=== PATIENT | female | born 1955 | race Hispanic/Latino ===

== ENCOUNTER 2022-01-06 20:08 | Emergency (ER) | payer OTHER ==
[~2022-01-06] VITALS: Ht 160 cm; Wt 75.8 kg
[2022-01-06 20:08] VITALS: BP 131/70; TEMP 97.8
[2022-01-06 21:03] LABS: PLATELET COUNT 292 K/uL (152-353)
[2022-01-06 21:14] LABS: POTASSIUM 4.2 mmol/L (3.6-5.2)
[2022-01-06] MEDS ORDERED: IBU600 MG PO (23:17)
[2022-01-06] MEDS ORDERED: HALO5INJ3 IM (23:17)
[2022-01-06] MEDS ORDERED: ARTHRICREAM 10% TOP (23:18)
[2022-01-06] MEDS ORDERED: QUETIAPINE100 MG PO (23:19)
[2022-01-06] MEDS ORDERED: GABA300C2 PO (23:21)
[2022-01-06] MEDS ORDERED: CVS SENNA8.6 MG PO (23:22)
[2022-01-06] MEDS ORDERED: MEMANTINE HYDRO10 MG PO (23:22)
[2022-01-06] MEDS ORDERED: BUSPIRONE10 MG PO (23:22)
[2022-01-06] MEDS ORDERED: METO-837 PO (23:23)
[2022-01-06] MEDS ORDERED: QUETIAPINE50 MG PO (23:24)
[2022-01-06] MEDS ORDERED: LEVO0.0218 PO (23:24)
[2022-01-06] MEDS ORDERED: [UNRECOGNIZED DRUG - CODE] PO (23:25)
[2022-01-06] MEDS ORDERED: DIVA250T PO (23:26)
[2022-01-06] MEDS ORDERED: ACID CONTROL20 MG PO (23:27)
[2022-01-06] MEDS ORDERED: DIVALPROEX125 MG PO (23:27)
[2022-01-06] MEDS ORDERED: NIZORAL A-D1 % TOP (23:29)
== END 2022-01-06 21:35 | disposition still patient (30) ==
LOC: ED 20:24
PROVIDERS: Emergency Medicine
DX: R46.89 Other symptoms and signs involving appearance and behavior (principal); Z11.52 Encounter for screening for COVID-19; Z04.6 Encounter for general psychiatric examination, requested by authority
CPT/HCPCS: 36415; 80053; 81000; 85027; 87635; 93005; 99283; U0003